=== PATIENT | female | born 1990 | race Caucasian/White ===

== ENCOUNTER 2017-07-01 22:01 | Emergency (ER) | payer BC ==
[~2017-07-01] VITALS: Ht 165.1 cm; Wt 77.0 kg
[2017-07-01 22:12] VITALS: Ht 165.1 cm; Wt 77.0 kg
[2017-07-01] MEDS ORDERED: HYDROCODONE/APAP (5/325) TAB PO ONE (23:00)
[2017-07-01] MEDS ORDERED: HYDROCODONE/APAP (5/325) TAB ONE (23:20)
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
[2017-07-02] MEDS ORDERED: ALPR0.254 PO (01:20)
[2017-07-02] MEDS ORDERED: METO-335 PO (01:20)
[2017-07-02] MEDS ORDERED: ASPI-535 PO (01:20)
[2017-07-02] MEDS ORDERED: NIT4 SL (01:20)
[2017-07-02] MEDS ORDERED: IBUP800T25 PO (03:50)
[2017-07-02] MEDS ORDERED: HYDR-906 PO (03:50)
[2017-07-02 04:18] VITALS: BP 122/75; PULSE 78; TEMP 98.7
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
== END 2017-07-02 04:30 | disposition home or self-care (01) ==
LOC: E/R 22:01
DX: S39.81XA Other specified injuries of abdomen, initial encounter (principal); R51 Headache; Y08.89XA Assault by other specified means, initial encounter; Z79.82 Long term (current) use of aspirin
CPT/HCPCS: 70450; 76705; 76801; 76817; 84702; Z7502; Z7610